=== PATIENT | female | born 1965 | race Caucasian/White ===

== ENCOUNTER → 2024-08-22 15:41 | Outpatient (BNVA) | payer SELFPAY | PROVIDERS: Visit Provider Podiatrist Foot & Ankle Surgery | DX: M79.671 Pain in right foot (principal); M79.672 Pain in left foot; M20.10 Hallux valgus (acquired), unspecified foot; B35.1 Tinea unguium; Q82.8 Other specified congenital malformations of skin | CPT/HCPCS: 73630 ==